=== PATIENT | male | born 1940 | race American Indian/Alaskan Native ===

== ENCOUNTER 2017-02-28 08:36 | Outpatient (CLI) | payer MEDICARE ==
[2017-02-28 09:19] LABS: Blood Urea Nitrogen 16 mg/dL (9-20)
--- NOTE | 2017-02-28 11:23 | Cat Scan Report ---
CT scan of abdomen and pelvis without IV contrast: History: Prostate cancer. Findings: Normal lung bases. No pleural pericardial effusion. Normal liver spleen pancreas and gallbladder. Wall thickening of the stomach and antrum. Normal adrenals kidneys and bladder. No free intraperitoneal fluid or evidence of adenopathy. Normal appendix. Gaseous colon with moderate volume stool in colon. Diverticulosis sigmoid colon. No bowel distention. Impression: Thickened wall of stomach and antrum may be from gastritis among other causes. Diverticulosis sigmoid colon. Findings:
--- NOTE | 2017-03-04 07:45 | Nuclear Medicine Report ---
BONE SCAN: HISTORY: Initial staging of prostate cancer. COMPARISON: No previous bone scan. Correlation is made with a CT abdomen and pelvis performed the same day. FINDINGS: No suspicious blastic bony lesions were identified on CT abdomen and pelvis. There is a solitary, small focus of increased radiotracer uptake in the left frontal bone just superior to the left orbit. There is mild degenerative uptake in both shoulders, facet joints of the cervical and lumbar spine, right knee and left mid foot. There is mild uptake in the maxilla and mandible consistent with periodontal disease. IMPRESSION: Slightly suspicious solitary focus of increased uptake in the left frontal bone. Please correlate with the patient's PSA levels and consider further imaging with CT, MRI or PET CT. Degenerative uptake as described.
== END 2017-02-28 08:37 | disposition home or self-care (01) ==
LOC: NM 08:36
PROVIDERS: ATTEND Urology
DX: C61 Malignant neoplasm of prostate (principal); K57.30 Diverticulosis of large intestine without perforation or abscess without bleeding; R63.4 Abnormal weight loss
CPT/HCPCS: 36415; 74176; 78306; 82565; 84520; A9503